=== PATIENT | male | born 2005 | race Caucasian/White ===

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

== ENCOUNTER 2024-04-16 13:16 | Emergency (ER) | payer OTHER ==
[~2024-04-16] VITALS: Ht 195.6 cm; Wt 99.8 kg
[~2024-04-16 13:16] MED LIST: IBUP-1971 PO; ONDA-8 TL
[2024-04-16 14:01] VITALS: BP_SYST 104; PULSE 85; RESP 16; TEMP 98; O2SAT 96
[2024-04-16 14:32] VITALS: BP_SYST 104; PULSE 85; RESP 16; TEMP 98; O2SAT 96
== END 2024-04-16 14:32 | disposition home or self-care (01) ==
LOC: SED 13:16
DX: J45.909 Unspecified asthma, uncomplicated (principal); F12.90 Cannabis use, unspecified, uncomplicated; Z79.899 Other long term (current) drug therapy
CPT/HCPCS: 99283